=== PATIENT | female | born 1985 | race American Indian/Alaskan Native ===

== ENCOUNTER 2021-11-30 20:57 | Inpatient (IN) | payer OTHER ==
[2021-11-30] MEDS ORDERED: OXYTOCIN 10 UNIT/1 ML INJ IM PRN (22:13)
[2021-11-30] MEDS ORDERED: BUTORPHANOL 2 MG/1 ML INJ IV PRN ×2 (22:13)
[2021-11-30] MEDS ORDERED: LOPERAMIDE 2 MG CAP PO PRN (22:13)
[2021-11-30] MEDS ORDERED: ePHEDrine SULFATE 50 MG/1 ML INJ IV PRN (22:13)
[2021-11-30] MEDS ORDERED: MINERAL OIL 30 ML ORAL LIQD PO PRN (22:13)
[2021-11-30] MEDS ORDERED: METHYLERGONOVINE MALEATE 0.2 MG/ML VIAL IM PRN (22:13)
[2021-11-30] MEDS ORDERED: miSOPROStol 200 MCG TAB PR PRN (22:13)
[2021-11-30] MEDS ORDERED: LIDOCAINE (2%) 20 MG/1 ML VIAL 20 ML MDV INFILTRATI ONE (22:13)
[2021-11-30] MEDS ORDERED: TERBUTALINE 1 MG/1 ML INJ SUB-Q PRN (22:13)
[2021-11-30] MEDS ORDERED: CARBOPROST TROMETHAMINE 250 MCG/1 ML INJ IM PRN (22:13)
[2021-11-30] MEDS ORDERED: fentaNYL 100 MCG/2 ML INJ IV PRN (22:13)
[2021-11-30] MEDS ORDERED: ONDANSETRON 4 MG/2 ML INJ IV PRN (22:13)
[2021-11-30 22:46] LABS: Hematocrit 36.7 % (30.3-42.9); Hemoglobin 12.1 gm/dl (10.1-14.3); Mean Corpuscular HGB Conc 33 % (30-34); Mean Corpuscular Volume 92 fl (79-97); Platelet Count 155 K/mm3 (140-440); Red Blood Count 3.98 M/mm3 (3.65-5.03); Red Cell Distribution Width 13.9 % (13.2-15.2)
[2021-11-30] MEDS ORDERED: OXYTOCIN DRIP 30 UNITS/500 ML BAG IV SCH (23:00)
[2021-11-30] MEDS ORDERED: DINOPROSTONE 10 MG VAG SUPP VG ONE (23:00)
[2021-11-30] MEDS: LACTATED RINGERS 1,000 ML IV SCH (23:05)
[2021-12-01] MEDS ORDERED: DINOPROSTONE 10 MG VAG SUPP VG ONE (00:12)
[2021-12-01] MEDS: LACTATED RINGERS 1,000 ML IV SCH (08:19)
[2021-12-01] MEDS: OXYTOCIN DRIP 30 UNITS/500 ML BAG IV SCH ×2 (16:23→18:19)
--- NOTE | 2021-12-01 22:54 | History and Physical Report ---
History of Present Illness Date of examination: 12/01/21 Date of admission: 11/30/21 22:13 Chief complaint: Induction of labor History of present illness: 36-year-old -0-1-0 at 38+1 weeks admitted for induction of labor secondary to history of chronic hypertension and a history of at IUFD at 35 weeks. The patient is a late transfer care at 32 weeks estimated gestational age. Her course is also complicated by history of uterine fibroids and genital herpes which the patient denies any recent prodrome. Past History Past Medical History: hypertension, other (Uterine fibroids) Social history: - Obstetrical History Expected Date of Delivery: 12/14/21 Actual Gestation: 38 Week(s) 1 Day(s) : 2 Para: 0 Hx # Term Pregnancies: 0 Number of Pregnancies: 1 Spontaneous Abortions: 0 Induced : 0 Number of Living Children: 0 Medications and Allergies Allergies Allergy/AdvReac Type Severity Reaction Status Date / Time No Known Allergies Allergy Verified 12/01/21 08:14 Home Medications Medication Instructions Recorded Confirmed Last Taken Type Aspirin [[place]] 1 tab PO DAILY 12/01/21 12/01/21 11/30/21 History Multivitamin Tablet 81 mg PO DAILY 12/01/21 12/01/21 11/30/21 History valACYclovir [Valtrex] 500 mg PO DAILY 12/01/21 12/01/21 11/30/21 History Active Meds: Active Medications Acetaminophen (Acetaminophen 325 Mg Tab) 650 mg PO Q4H PRN PRN Reason: Pain, Mild (1-3) Butorphanol Tartrate (Butorphanol 2 Mg/1 Ml Inj) 2 mg IV Q2H PRN PRN Reason: Pain , Severe (7-10) Butorphanol Tartrate (Butorphanol 2 Mg/1 Ml Inj) 1 mg IV Q2H PRN PRN Reason: Pain, Moderate(4-6) LABOR PAIN Carboprost Tromethamine (Carboprost Tromethamine 250 Mcg/1 Ml Inj) 250 mcg IM ONCE PRN PRN Reason: Uterine Bleeding Ephedrine Sulfate (Ephedrine Sulfate 50 Mg/1 Ml Inj) 10 mg IV Q2M PRN PRN Reason: Hypotension Fentanyl (Fentanyl 100 Mcg/2 Ml Inj) 100 mcg IV Q2H PRN PRN Reason: Pain,Severe (7-10) LABOR PAIN Oxytocin/Sodium Chloride (Pitocin/Ns 30 Unit/500ml) 30 units in 500 mls @ 2 mls/hr IV TITR LUCHO; Protocol Lactated Ringer's (Lactated Ringers) 1,000 mls @ 125 mls/hr IV DIRECT LUCHO Last Admin: 12/01/21 08:19 Dose: 125 mls/hr Oxytocin/Sodium Chloride (Pitocin/Ns 30 Unit/500ml) 30 units in 500 mls @ 40 mls/hr IV TITR LUCHO; Protocol Last Admin: 12/01/21 18:19 Dose: 8 ml/hr, 8 mls/hr Loperamide HCl (Loperamide 2 Mg Cap) 2 mg PO ONCE PRN PRN Reason: give with Hemabate Methylergonovine Maleate (Methylergonovine Maleate 0.2 Mg/Ml Vial) 0.2 mg IM ONCE PRN PRN Reason: Uterine Bleeding Mineral Oil (Mineral Oil 30 Ml Oral Liqd) 30 ml PO QHS PRN PRN Reason: Constipation Misoprostol (Misoprostol 200 Mcg Tab) 800 mcg OR ONCE PRN PRN Reason: Uterine Bleeding Ondansetron HCl (Ondansetron 4 Mg/2 Ml Inj) 4 mg IV Q8H PRN PRN Reason: Nausea And Vomiting Oxytocin (Oxytocin 10 Unit/1 Ml Inj) 10 unit IM ONCE PRN PRN Reason: Uterine Bleeding Terbutaline Sulfate (Terbutaline 1 Mg/1 Ml Inj) 0.25 mg SUB-Q ONCE PRN PRN Reason: Hyperstimulation/Hypertonicity Review of Systems All systems: negative Genitourinary: no leakage of fluid, no contractions - Vital Signs Vital signs: Vital Signs Pulse Pulse Ox 93 H 97 11/30/21 21:30 11/30/21 21:30 Temp Pulse Resp BP Pulse Ox 98.4 F 75 18 120/61 98 12/01/21 19:19 12/01/21 22:46 12/01/21 19:19 12/01/21 22:23 12/01/21 22:46 - Physical Exam Breasts: Positive: deferred, mass Lungs: Positive: Clear to auscultation Abdomen: Positive: normal appearance Results Result Diagrams: 11/30/21 21:50 All other labs normal. Assessment and Plan - Patient Problems (1) Chronic hypertension affecting Current Visit: Yes Status: Acute Plan to address problem: Admit patient for induction of labor
[2021-12-01] MEDS ORDERED: AMPICILLIN/NS 2 GM/100 ML 2 GM/100 ML BAG IV ONE (23:25)
[2021-12-02] MEDS ORDERED: AMPICILLIN/NS 1 GM/50 ML 1 GM/50 ML BAG IV SCH (02:30)
[2021-12-02] MEDS: LACTATED RINGERS 1,000 ML IV SCH ×2 (03:49→03:50)
--- NOTE | 2021-12-02 10:35 | Progress Note ---
Assessment and Plan - Patient Problems (1) Chronic hypertension affecting Current Visit: Yes Status: Acute Plan to address problem: AROM @ 1025, moderate meconium Continue Pitocin as tolerated Pain meds as needed NICU at bedside for delivery Continue to closely monitor maternal/ wellbeing (2) HSV-2 seropositive Current Visit: Yes Status: Acute Plan to address problem: No active lesions noted (3) Trichomonal cervicitis Current Visit: Yes Status: Acute Plan to address problem: Treated (4) History of IUFD Current Visit: Yes Status: Acute Subjective - Subjective Date of service: 12/02/21 Principal diagnosis: IOL; CHTN Interval history: 36-year-old -0-1-0 at 38+1 weeks admitted for induction of labor secondary to history of chronic hypertension and a history of at IUFD at 35 weeks. The patient is a late transfer care at 32 weeks estimated gestational age. Her course is also complicated by history of uterine fibroids and genital herpes which the patient denies any recent prodrome and Trichomonas. Patient reports: movement normal, contractions, no new complaints, no vaginal bleeding Objective - Vital Signs Vital Signs: Vital Signs - 12hr 12/01/21 12/01/21 12/01/21 22:36 22:41 22:46 Temperature Pulse Rate 73 75 75 Respiratory Rate Blood Pressure O2 Sat by Pulse 99 98 98 Oximetry 12/01/21 12/01/21 12/01/21 22:51 22:52 22:56 Temperature Pulse Rate 84 74 74 Respiratory Rate Blood Pressure 135/85 O2 Sat by Pulse 98 99 Oximetry 12/01/21 12/01/21 12/01/21 23:01 23:06 23:11 Temperature Pulse Rate 79 81 75 Respiratory Rate Blood Pressure O2 Sat by Pulse 98 98 98 Oximetry 12/01/21 12/01/21 12/01/21 23:16 23:32 23:37 Temperature Pulse Rate 72 82 49 L Respiratory Rate Blood Pressure O2 Sat by Pulse 99 98 99 Oximetry 12/01/21 12/01/21 12/01/21 23:42 23:47 23:52 Temperature Pulse Rate 83 83 77 Respiratory Rate Blood Pressure 126/75 O2 Sat by Pulse 97 97 97 Oximetry 12/01/21 12/02/21 12/02/21 23:57 00:02 00:07 Temperature Pulse Rate 85 85 72 Respiratory Rate Blood Pressure O2 Sat by Pulse 99 98 97 Oximetry 12/02/21 12/02/21 12/02/21 00:12 00:17 00:22 Temperature Pulse Rate 94 H 82 69 Respiratory Rate Blood Pressure 128/79 O2 Sat by Pulse 98 98 96 Oximetry 12/02/21 12/02/21 12/02/21 00:27 00:32 00:37 Temperature Pulse Rate 71 70 70 Respiratory Rate Blood Pressure O2 Sat by Pulse 98 98 98 Oximetry 12/02/21 12/02/21 12/02/21 00:42 00:47 00:52 Temperature Pulse Rate 63 63 71 Respiratory Rate Blood Pressure 141/87 O2 Sat by Pulse 98 98 96 Oximetry 12/02/21 12/02/21 12/02/21 00:57 01:02 01:07 Temperature Pulse Rate 85 68 87 Respiratory Rate Blood Pressure O2 Sat by Pulse 98 98 98 Oximetry 12/02/21 12/02/21 12/02/21 01:12 01:17 01:22 Temperature Pulse Rate 99 H 71 84 Respiratory Rate Blood Pressure 139/91 O2 Sat by Pulse 98 98 98 Oximetry 12/02/21 12/02/21 12/02/21 01:27 01:32 01:37 Temperature Pulse Rate 84 73 91 H Respiratory Rate Blood Pressure O2 Sat by Pulse 98 98 98 Oximetry 12/02/21 12/02/21 12/02/21 01:52 01:53 01:57 Temperature Pulse Rate 94 H 94 H 71 Respiratory Rate Blood Pressure 126/77 O2 Sat by Pulse 98 98 Oximetry 12/02/21 12/02/21 12/02/21 02:02 02:07 02:12 Temperature Pulse Rate 72 67 66 Respiratory Rate Blood Pressure O2 Sat by Pulse 97 97 98 Oximetry 12/02/21 12/02/21 12/02/21 02:17 02:22 02:27 Temperature Pulse Rate 66 71 66 Respiratory Rate Blood Pressure 134/60 O2 Sat by Pulse 97 98 97 Oximetry 12/02/21 12/02/21 12/02/21 02:32 02:37 02:42 Temperature Pulse Rate 69 72 64 Respiratory Rate Blood Pressure O2 Sat by Pulse 98 97 98 Oximetry 12/02/21 12/02/21 12/02/21 02:47 02:52 02:57 Temperature Pulse Rate 68 79 92 H Respiratory Rate Blood Pressure 120/65 O2 Sat by Pulse 98 98 99 Oximetry 12/02/21 12/02/21 12/02/21 03:02 03:07 03:12 Temperature Pulse Rate 77 84 84 Respiratory Rate Blood Pressure O2 Sat by Pulse 98 98 98 Oximetry 12/02/21 12/02/21 12/02/21 03:17 03:22 03:27 Temperature Pulse Rate 79 77 72 Respiratory Rate Blood Pressure 122/74 O2 Sat by Pulse 98 98 99 Oximetry 12/02/21 12/02/21 12/02/21 03:32 03:37 03:42 Temperature Pulse Rate 71 76 79 Respiratory Rate Blood Pressure O2 Sat by Pulse 98 98 99 Oximetry 12/02/21 12/02/21 12/02/21 03:47 03:52 03:57 Temperature Pulse Rate 74 76 87 Respiratory Rate Blood Pressure 126/81 O2 Sat by Pulse 99 98 98 Oximetry 12/02/21 12/02/21 12/02/21 04:02 04:07 04:21 Temperature Pulse Rate 84 77 100 H Respiratory Rate Blood Pressure O2 Sat by Pulse 98 98 95 Oximetry 12/02/21 12/02/21 12/02/21 04:26 04:31 04:36 Temperature Pulse Rate 68 83 66 Respiratory Rate Blood Pressure O2 Sat by Pulse 97 98 97 Oximetry 12/02/21 12/02/21 12/02/21 04:41 04:46 04:51 Temperature Pulse Rate 68 70 66 Respiratory Rate Blood Pressure O2 Sat by Pulse 98 98 98 Oximetry 12/02/21 12/02/21 12/02/21 04:53 04:56 05:01 Temperature Pulse Rate 68 67 79 Respiratory Rate Blood Pressure 112/61 O2 Sat by Pulse 98 98 Oximetry 12/02/21 12/02/21 12/02/21 05:06 05:25 05:30 Temperature Pulse Rate 83 82 71 Respiratory Rate Blood Pressure O2 Sat by Pulse 97 99 98 Oximetry 12/02/21 12/02/21 12/02/21 05:35 05:37 05:40 Temperature Pulse Rate 87 72 Respiratory 18 Rate Blood Pressure O2 Sat by Pulse 99 98 Oximetry 12/02/21 12/02/21 12/02/21 05:45 05:50 05:52 Temperature Pulse Rate 84 74 73 Respiratory Rate Blood Pressure 134/83 O2 Sat by Pulse 97 98 Oximetry 12/02/21 12/02/21 12/02/21 05:55 06:00 06:05 Temperature Pulse Rate 78 68 69 Respiratory Rate Blood Pressure O2 Sat by Pulse 98 97 98 Oximetry 12/02/21 12/02/21 12/02/21 06:10 06:15 06:20 Temperature Pulse Rate 72 66 74 Respiratory Rate Blood Pressure O2 Sat by Pulse 97 97 98 Oximetry 12/02/21 12/02/21 12/02/21 06:23 06:25 06:30 Temperature Pulse Rate 67 58 L 78 Respiratory Rate Blood Pressure 122/82 O2 Sat by Pulse 98 99 Oximetry 12/02/21 12/02/21 12/02/21 06:35 06:40 06:45 Temperature Pulse Rate 72 69 61 Respiratory Rate Blood Pressure O2 Sat by Pulse 98 99 98 Oximetry 12/02/21 12/02/21 12/02/21 06:50 06:52 06:55 Temperature Pulse Rate 65 60 82 Respiratory Rate Blood Pressure 122/81 O2 Sat by Pulse 99 99 Oximetry 12/02/21 12/02/21 12/02/21 07:00 07:05 07:10 Temperature Pulse Rate 63 64 65 Respiratory Rate Blood Pressure O2 Sat by Pulse 98 98 98 Oximetry 12/02/21 12/02/21 12/02/21 07:15 07:20 07:23 Temperature Pulse Rate 78 64 62 Respiratory Rate Blood Pressure 117/65 O2 Sat by Pulse 97 97 Oximetry 12/02/21 12/02/21 12/02/21 07:25 07:30 07:35 Temperature Pulse Rate 65 81 74 Respiratory Rate Blood Pressure O2 Sat by Pulse 98 98 98 Oximetry 12/02/21 12/02/21 12/02/21 07:56 08:01 08:06 Temperature Pulse Rate 71 85 67 Respiratory Rate Blood Pressure O2 Sat by Pulse 98 97 98 Oximetry 12/02/21 12/02/21 12/02/21 08:11 08:16 08:18 Temperature Pulse Rate 67 64 82 Respiratory Rate Blood Pressure 116/85 O2 Sat by Pulse 97 98 Oximetry 12/02/21 12/02/21 12/02/21 08:21 08:22 08:26 Temperature Pulse Rate 63 69 72 Respiratory Rate Blood Pressure 115/73 O2 Sat by Pulse 99 99 Oximetry 12/02/21 12/02/21 12/02/21 08:31 08:36 08:39 Temperature 99.0 F Pulse Rate 74 67 Respiratory 16 Rate Blood Pressure O2 Sat by Pulse 97 99 Oximetry 12/02/21 12/02/21 12/02/21 08:41 09:01 09:06 Temperature Pulse Rate 75 102 H 93 H Respiratory Rate Blood Pressure O2 Sat by Pulse 99 100 98 Oximetry 12/02/21 12/02/21 12/02/21 09:11 09:16 09:21 Temperature Pulse Rate 60 64 62 Respiratory Rate Blood Pressure O2 Sat by Pulse 98 98 98 Oximetry 12/02/21 12/02/21 12/02/21 09:22 09:26 09:31 Temperature Pulse Rate 61 71 79 Respiratory Rate Blood Pressure 120/70 O2 Sat by Pulse 99 99 Oximetry 12/02/21 12/02/21 12/02/21 09:36 09:41 09:46 Temperature Pulse Rate 72 64 87 Respiratory Rate Blood Pressure O2 Sat by Pulse 99 99 99 Oximetry 12/02/21 12/02/21 12/02/21 09:51 09:52 10:10 Temperature Pulse Rate 70 63 98 H Respiratory Rate Blood Pressure 117/67 O2 Sat by Pulse 98 98 Oximetry 12/02/21 12/02/21 12/02/21 10:15 10:20 10:23 Temperature Pulse Rate 79 95 H 86 Respiratory Rate Blood Pressure 179/84 O2 Sat by Pulse 99 99 Oximetry 12/02/21 12/02/21 10:25 10:30 Temperature Pulse Rate 77 85 Respiratory Rate Blood Pressure 131/77 O2 Sat by Pulse 99 98 Oximetry - Exam Breasts: deferred Cardiovascular: Regular rate Lungs: Normal air movement Abdomen: Present: other (gravid) FHR: category 1 (with some early decelerations) Uterine Contraction Monitor Mode: External Cervical Dilatation: 3.5 (vertex) Cervical Effacement Percentage: 60 (Pitocin @ 10mu/min) station: -2 Uterine Contraction Frequency (min): 5-6 Uterine Contraction Pattern: Irregular Uterine Tone Measurement Phase: Resting Uterine Contraction Intensity: Mild Deep Tendon Reflex Grade: Normal +2 - Labs Labs: Laboratory Results - last 24 hr 12/01/21 11:30 SARS-CoV-2 (PCR) Negative
[2021-12-02] MEDS: OXYTOCIN DRIP 30 UNITS/500 ML BAG IV SCH ×2 (11:19→13:59)
[2021-12-02] MEDS ORDERED: fentaNYL-BUPIV 2 MCG/ML-0.125% 200 MCG/100 ML BAG EPIDURAL SCH (12:39)
[2021-12-02] MEDS ORDERED: NALOXONE 0.4 MG/1 ML INJ IV PRN (12:39)
[2021-12-02] MEDS ORDERED: ePHEDrine SULFATE 50 MG/1 ML INJ IV PRN (12:39)
--- NOTE | 2021-12-02 13:28 | Anesthesia Consultation ---
Anesthesia Consult and Med Hx Date of service: 12/02/21 - Airway Anesthetic Teeth Evaluation: Good ROM Head & Neck: Adequate Mental/Hyoid Distance: Adequate Mallampati Class: Class II Intubation Access Assessment: Probably Good - Pulmonary Exam CTA: Yes - Cardiac Exam Cardiac Exam: RRR - Pre-Operative Health Status ASA Pre-Surgery Classification: ASA2 Proposed Anesthetic Plan: Epidural - Pulmonary Hx Smoking: No Hx Asthma: No Hx Respiratory Symptoms: No SOB: No COPD: No Home Oxygen Therapy: No Hx Pneumonia: No Hx Sleep Apnea: No - Cardiovascular System Hx Hypertension: No Hx Coronary Artery Disease: No Hx Heart Attack/AMI: No Hx Angina: No Hx Percutaneous Transluminal Coronary Angioplasty (PTCA): No Hx Cardia Arrhythmia: No Hx Pacemaker: No Hx Internal Defibrillator: No Hx Valvular Heart Disease: No Hx Heart Murmur: No Hx Peripheral Vascular Disease: No - Central Nervous System Hx Neuromuscular Disorder: No Hx Seizures: No CVA: No Hx Back Pain: No Hx Psychiatric Problems: No - Gastrointestinal Hx Ulcer: No Hx Gastroesophageal Reflux Disease: No - Endocrine Hx Renal Disease: No Hx End Stage Renal Disease: No Hx Cirrhosis: No Hx Liver Disease: No Hx Insulin Dependent Diabetes: No Hx Non-Insulin Dependent Diabetes: No Hx Thyroid Disease: No Hx Hypothyroidism: No Hx Hyperthyroidism: No - Hematic Hx Anemia: No Hx Sickle Cell Disease: No - Other Systems Hx Alcohol Use: No Hx Substance Use: No Hx Cancer: No Hx Obesity: No
--- NOTE | 2021-12-02 13:28 | Anesthesia Day of Surgery ---
Anesthesia Day of Surgery - Day of Surgery Patient Examined: Yes Patient H&P Reviewed: Yes Patient is NPO: Yes Beta Blockers: No Cardiac Clearance: No Pulmonary Clearance: No Tejas's Test: N/A
--- NOTE | 2021-12-02 13:29 | Progress Note ---
Labor Epidural - Labor Epidural Start Time: 13:06 Stop Time: 13:11 Performed by:: ZANE MILLER Procedure: Epidural Requested for Labor Pain. H&P and PT Chart reviewed and consent obtained. Time out performed and the procedure was explained, all questions answered. Patient was placed in a sitting position with monitors applied. The PTs back was prepped and draped in usual sterile fashion. The Skin was localized with 3 mL of 1% lidocaine at L3-L4. A 17-gauge Touhy epidural needle was advanced to ANITA with saline at 7 cm and no blood/CSF was noted via epidural needle. Epidural catheter was advanced to 12 cm. There was negative aspiration for blood and CSF in the catheter and negative response to a test dose of 3 ml 1.5% lidocaine w/ Epi and a sterile dressing was applied Patient tolerated the procedure well and there were no immediate complications noted.
[2021-12-02] MEDS ORDERED: PROMETHAZINE 25 MG TAB PO PRN (16:40)
[2021-12-02] MEDS ORDERED: oxyCODONE /ACETAMINOPHEN 5-325MG TAB PO PRN (16:40)
[2021-12-02] MEDS ORDERED: WITCH HAZEL/ GLYCERIN PAD TP PRN (16:40)
[2021-12-02] MEDS ORDERED: MAGNESIUM HYDROXIDE (MOM) ORAL LIQD UDC PO PRN (16:40)
[2021-12-02] MEDS ORDERED: LANOLIN/ZINC/DIMETHICONE (LANSINOH) 7 GM TP PRN (16:40)
[2021-12-02] MEDS ORDERED: diphenhydrAMINE 25 MG CAP PO PRN (16:40)
--- NOTE | 2021-12-02 16:49 | Procedure Note ---
OB Delivery Note - Delivery Date of Delivery: 12/02/21 (4089) Surgeon: TAWNYA YANEZ (CNM) Estimated blood loss: 200cc - Vaginal Delivery presentation: vertex Delivery position: OA (SHOBHA) Intrapartum events: meconium (moderate) Delivery induction: cervidil Delivery augmentation: rupture of membranes (1035, moderate meconium) Delivery monitor: external FHT, external uterine Route of delivery: Delivery placenta: spontaneous (1615, castellano) Delivery cord: 3 umbilical vessels Episiotomy: none Delivery laceration: none Anesthesia: epidural Delivery comments: of viable, quiet male infant placed directly to maternal abdomen. Spontaneous cry produced after drying baby with warm blanket. Cord double clamped, cut by FOB. Placenta spontaneously delivered, disposed per hospital policy. Uterus firm @ U-3, hemostasis maintained. Perineum intact. Mother and baby safe, stable and left in care of RN. - Infant A at 1 minute: 8 at 5 minutes: 9 Gender: Male (Weight: 2620 gms (5lbs 12 ozs) 19 inches)
[2021-12-02] MEDS: ACETAMINOPHEN 325 MG TAB PO PRN (21:06)
[2021-12-03] MEDS ORDERED: SIMETHICONE 80 MG CHEW TAB PO PRN (03:34)
[2021-12-03] MEDS: ACETAMINOPHEN 325 MG TAB PO PRN (04:52)
[2021-12-03 08:24] LABS: Hematocrit 31.6 % (30.3-42.9); Hemoglobin 10.3 gm/dl (10.1-14.3)
[2021-12-03] MEDS ORDERED: IBUPROFEN 800 MG TAB PO PRN (14:40)
--- NOTE | 2021-12-03 14:42 | Discharge Summary ---
Providers - Providers Date of Admission: 11/30/21 22:13 Date of discharge: 12/04/21 Attending physician: SANDRA CURRY 12/02/21 16:42 Consult to Noise Tester [CONS] Routine Reason For Exam: assistance with , SNS Primary care physician: SANDRA CURRY Hospitalization Reason for admission: induction of labor Delivery: Episiotomy: none Laceration: other (left inner labial repair, healing as expected) Other procedures: none complications: none Discharge diagnosis: IUP at term delivered, other (anemia) [place] baby: male Hospital course: 36-year-old -0-1-0 at 38+1 weeks admitted for induction of labor secondary to history of chronic hypertension and a history of at IUFD at 35 weeks. The patient is a late transfer care at 32 weeks estimated gestational age. Her course is also complicated by history of uterine fibroids and genital herpes which the patient denies any recent prodrome and trichomonas. Delivered viable male infant via . course has been uncomplicated. Condition at discharge: Good Disposition: 01 HOME / SELF CARE / HOMELESS - Discharge Diagnoses (1) Chronic hypertension affecting Status: Acute (2) HSV-2 seropositive Status: Acute (3) Trichomonal cervicitis Status: Acute (4) History of IUFD Status: Acute (5) Status post normal vaginal delivery Status: Acute Plan - Discharge Medications Prescriptions: Ibuprofen [Motrin 800 MG tab] 800 mg PO Q8H PRN #30 tablet PRN Reason: Pain, Mild (1-3) - Provider Discharge Summary Activity: routine, no sex for 6 weeks, no heavy lifting 4 weeks, no strenuous exercise Diet: other (Iron rich diet) Instructions: routine Additional instructions: [] Smoking cessation referral if applicable(refer to patient education folder for contact #) [] Refer to [facility] Booklet Call your doctor immediately for: * Fever > 100.5 * Heavy vaginal bleeding ( >1 pad per hour) * Severe persistent headache * Shortness of breath * Reddened, hot, painful area to leg or breast * Drainage or odor from incision. * Keep laceration site clean and dry at all times and follow doctor's instructions regarding bathing/showering - Follow up plan Follow up: SANDRA CURRY MD [Primary Care Provider] - 6 Weeks
--- NOTE | 2021-12-04 00:39 | Post Anesthesia Evaluation ---
- Post Anesthesia Evaluation Patient Participated: Yes Airway Patent: Yes Stable Respiratory Function: Yes Nausea/Vomiting: No Temp > 96.8F: Yes Pain Manageable: Yes Adequeate Hydration: Yes Anesthesia Complications: No Block Receding Appropriately: Yes Patient on Ventilator: No
[2021-12-04 12:25] VITALS: BP 138/82
== END 2021-12-04 12:38 | disposition home or self-care (01) | DRG 806 ==
LOC: TRG 20:57 → LD 21:00 → TRG 22:13 → OB 12-03 08:09
PROVIDERS: ADMIT Obstetrics & Gynecology; ATTEND Obstetrics & Gynecology
PROC: 10E0XZZ Delivery of Products of Conception, External Approach (ICD-10-PCS; principal; 2021-12-02)
PROC: 3E0P7VZ Introduction of Hormone into Female Reproductive, Via Natural or Artificial Opening (ICD-10-PCS; 2021-12-02)
PROC: 10907ZC Drainage of Amniotic Fluid, Therapeutic from Products of Conception, Via Natural or Artificial Opening (ICD-10-PCS; 2021-12-02)
PROC: 3E0R3BZ Introduction of Anesthetic Agent into Spinal Canal, Percutaneous Approach (ICD-10-PCS; 2021-12-02)
PROC: 00HU33Z Insertion of Infusion Device into Spinal Canal, Percutaneous Approach (ICD-10-PCS; 2021-12-02)
PROC: 0UQMXZZ Repair Vulva, External Approach (ICD-10-PCS; 2021-12-02)
DX: O10.92 Unspecified pre-existing hypertension complicating childbirth (principal); O98.32 Other infections with a predominantly sexual mode of transmission complicating childbirth; Z37.0 Single live birth; A60.00 Herpesviral infection of urogenital system, unspecified; O77.0 Labor and delivery complicated by meconium in amniotic fluid; A59.09 Other urogenital trichomoniasis; O70.0 First degree perineal laceration during delivery; O90.81 Anemia of the puerperium; Z20.822 Contact with and (suspected) exposure to COVID-19; Z3A.38 38 weeks gestation of pregnancy
CPT/HCPCS: 36415; 59200; 85014; 85018; 85027; 86850; 86900; 86901; 99211; G0378; G0463; J2590; J3010; J7120; U0003